=== PATIENT | female | born 1950 | race African-American/Black ===

== ENCOUNTER 2021-10-22 21:17 | Inpatient (IN) | payer MEDICARE, MEDICAID ==
[~2021-10-22] VITALS: Ht 175.3 cm; Wt 84.4 kg
[~2021-10-22 21:17] MED LIST: AMIO100T4 PO; CEPH250C2 PO; COR6 PO; DABI150C PO; FURO-152 PO; MIDO2.5T PO; PANT40TA51 PO; SERT20OR PO
[2021-10-22] MEDS ORDERED: NITROGLYCERIN 0.4MG TABLET SL SL PRN (22:45)
[2021-10-22] MEDS ORDERED: DILTIAZEM HCL 120MG CAPSULE CD 24HR PO ONE (22:45)
[2021-10-22] MEDS: ASPIRIN 81MG TABLET PO ONE ×2 (22:45→23:26)
[2021-10-22 23:14] LABS: BASOPHILS % 0.6 % (0.0-2.0); EOSINOPHILS % 0.7 % (0.0-5.0); HEMATOCRIT. 42.8 % (36.0-48.0); HEMOGLOBIN. 14.3 g/dL (12.0-16.0); LYMPHOCYTES % 16.6 % (20.0-50.0); MEAN CORPUSCULAR HEMOGLOBIN 29.2 pg (28.0-32.0); MEAN CORPUSCULAR VOLUME 87.6 fL (81.0-99.0); MEAN PLATELET VOLUME 8.2 fl (7.4-10.4); MONOCYTES % 8.8 % (2.0-8.0); NEUTROPHILS % 73.3 % (40.0-76.0); PLATELET 215 x1000/uL (130-400); RED BLOOD CELL COUNT 4.89 mill/uL (4.2-5.4); RED CELL DISTRIBUTION WIDTH 18.5 % (11.6-14.6)
[2021-10-22 23:15] LABS: CHLORIDE 110 mEq/L (98-107)
[2021-10-23] VITALS (9 sets, daily range): BP systolic 98–113; BP diastolic 56–82
[2021-10-23] MEDS ORDERED: ACETAMINOPHEN 325MG TABLET PO PRN (07:15)
[2021-10-23] MEDS: OMEPRAZOLE 20MG CAPSULE EXTENDED RELEASE PO SCH (08:29)
[2021-10-23] MEDS ORDERED: POTASSIUM CHLORIDE 20MEQ TABLET SR PO SCH (09:00)
[2021-10-23] MEDS ORDERED: AMIODARONE HCL 200 MG TABLET PO SCH ×2 (09:00→17:00)
[2021-10-23] MEDS: CARVEDILOL 6.25 MG TABLET PO SCH ×2 (10:10→21:00)
[2021-10-23] MEDS: MIDODRINE HCL 2.5MG TABLET PO SCH ×3 (10:10→16:51)
[2021-10-23] MEDS: AMIODARONE HCL 200 MG TABLET PO SCH (11:30)
[2021-10-23] MEDS: DILTIAZEM HCL 30MG TABLET PO SCH ×2 (12:00→18:00)
[2021-10-23 13:03] LABS: INR 1.4; PROTHROMBIN TIME 15.1 sec (9.6-11.0)
[2021-10-23] MEDS: ENOXAPARIN 80MG/0.8ML SYR SUBCUT SCH (16:51)
[2021-10-24] VITALS (12 sets, daily range): BP systolic 102–125; BP diastolic 57–82
[2021-10-24] MEDS: DILTIAZEM HCL 30MG TABLET PO SCH ×4 (06:00→17:52)
[2021-10-24 06:01] LABS: HEMATOCRIT. 42.1 % (36.0-48.0); HEMOGLOBIN. 13.8 g/dL (12.0-16.0); LYMPHOCYTES % 26.1 % (20.0-50.0); MEAN CORPUSCULAR HEMOGLOBIN 28.7 pg (28.0-32.0); MEAN CORPUSCULAR VOLUME 87.8 fL (81.0-99.0); MEAN PLATELET VOLUME 8.4 fl (7.4-10.4); MONOCYTES % 10.9 % (2.0-8.0); PLATELET 215 x1000/uL (130-400); RED BLOOD CELL COUNT 4.79 mill/uL (4.2-5.4); RED CELL DISTRIBUTION WIDTH 19.1 % (11.6-14.6)
[2021-10-24 06:03] LABS: CHLORIDE 111 mEq/L (98-107)
[2021-10-24] MEDS: ENOXAPARIN 80MG/0.8ML SYR SUBCUT SCH ×2 (06:10→17:53)
[2021-10-24] MEDS: OMEPRAZOLE 20MG CAPSULE EXTENDED RELEASE PO SCH (06:10)
[2021-10-24] MEDS: MIDODRINE HCL 2.5MG TABLET PO SCH ×3 (08:51→17:52)
[2021-10-24] MEDS: AMIODARONE HCL 200 MG TABLET PO SCH (08:52)
[2021-10-24] MEDS: CARVEDILOL 6.25 MG TABLET PO SCH ×2 (08:52→20:01)
[2021-10-24] MEDS ORDERED: POTASSIUM CHLORIDE 20MEQ TABLET SR PO NR (11:30)
[2021-10-24] MEDS: FUROSEMIDE 20MG TABLET PO SCH (13:48)
[2021-10-25] VITALS (7 sets, daily range): BP systolic 96–117; BP diastolic 44–75
[2021-10-25] MEDS: ENOXAPARIN 80MG/0.8ML SYR SUBCUT SCH ×2 (05:09→16:34)
[2021-10-25] MEDS: DILTIAZEM HCL 30MG TABLET PO SCH ×2 (05:09)
[2021-10-25] MEDS: OMEPRAZOLE 20MG CAPSULE EXTENDED RELEASE PO SCH (06:10)
[2021-10-25] MEDS: FUROSEMIDE 20MG TABLET PO SCH (09:22)
[2021-10-25] MEDS: CARVEDILOL 6.25 MG TABLET PO SCH (09:23)
[2021-10-25] MEDS: AMIODARONE HCL 200 MG TABLET PO SCH (09:23)
[2021-10-25] MEDS: MIDODRINE HCL 2.5MG TABLET PO SCH (09:23)
[2021-10-25] MEDS ORDERED: MIDODRINE HCL 2.5MG TABLET PO SCH (14:00)
[2021-10-25] MEDS ORDERED: MIDODRINE HCL 2.5MG TABLET PO NR (20:03)
[2021-10-25] MEDS: CARVEDILOL 12.5MG TABLET PO SCH (20:56)
[2021-10-25] MEDS ORDERED: FAMOTIDINE 20MG TABLET PO SCH (21:00)
[2021-10-25] MEDS: MIDODRINE HCL 5MG TABLET PO SCH (22:26)
[2021-10-26] VITALS: BP_SYST 104; BP_SYST 97; BP_DIAS 64; BP_DIAS 68
[2021-10-26 05:00] VITALS: BP_SYST 105; BP_SYST 86; BP_DIAS 56; BP_DIAS 74
[2021-10-26] MEDS: ENOXAPARIN 80MG/0.8ML SYR SUBCUT SCH (05:44)
[2021-10-26] MEDS: MIDODRINE HCL 5MG TABLET PO SCH (05:45)
[2021-10-26] MEDS ORDERED: FAMOTIDINE 20MG TABLET PO SCH (07:10)
[2021-10-26 07:55] VITALS: BP 110/78
[2021-10-26] MEDS: FUROSEMIDE 20MG TABLET PO SCH (08:35)
[2021-10-26] MEDS: CARVEDILOL 12.5MG TABLET PO SCH (08:36)
[2021-10-26] MEDS ORDERED: AMIODARONE HCL 200 MG TABLET PO SCH (09:00)
[2021-10-26 12:00] VITALS: BP 95/67
[2021-10-26 13:56] VITALS: BP 95/67
== END 2021-10-26 15:45 | disposition home health service (06) | DRG 291 ==
LOC: ER 21:17 → EDBEDREQTM 10-23 03:24 → ENRESERV 10-23 04:33 → 3WST 10-23 05:16 → 8WST 10-25 00:11
PROVIDERS: ADMIT Internal Medicine; ATTEND Internal Medicine
PROC: 4B02XTZ Measurement of Cardiac Defibrillator, External Approach (ICD-10-PCS; principal; 2021-10-25)
DX: I11.0 Hypertensive heart disease with heart failure (principal); I50.23 Acute on chronic systolic (congestive) heart failure; I48.20 Chronic atrial fibrillation, unspecified; I48.92 Unspecified atrial flutter; I31.3 Pericardial effusion (noninflammatory); I47.1 Supraventricular tachycardia; I34.0 Nonrheumatic mitral (valve) insufficiency; I42.9 Cardiomyopathy, unspecified; Z20.822 Contact with and (suspected) exposure to COVID-19; K21.9 Gastro-esophageal reflux disease without esophagitis; Z95.810 Presence of automatic (implantable) cardiac defibrillator; Z88.2 Allergy status to sulfonamides; Z79.899 Other long term (current) drug therapy; Z79.2 Long term (current) use of antibiotics; Z79.84 Long term (current) use of oral hypoglycemic drugs; Z79.01 Long term (current) use of anticoagulants
CPT/HCPCS: 36415; 71045; 80048; 80053; 83735; 83880; 84484; 85025; 87426; 93005; 93308; 99291; J1650

== ENCOUNTER 2022-09-17 14:00 | Inpatient (IN) | payer MEDICARE, MEDICAID ==
[~2022-09-17] VITALS: Ht 175.3 cm; Wt 85.8 kg
[~2022-09-17 14:00] MED LIST changes: -FURO-152 PO
[2022-09-17 15:22] LABS: BASOPHILS % 0.4 % (0.0-2.0); MEAN PLATELET VOLUME 8.2 fl (7.4-10.4)
[2022-09-17 15:24] LABS: EOSINOPHILS % 0.3 % (0.0-5.0); HEMATOCRIT. 45.5 % (36.0-48.0); HEMOGLOBIN. 15.1 g/dL (12.0-16.0); LYMPHOCYTES % 25.7 % (20.0-50.0); MEAN CORPUSCULAR VOLUME 87.6 fL (81.0-99.0); MONOCYTES % 8.7 % (2.0-8.0); NEUTROPHILS % 64.9 % (40.0-76.0); PLATELET 190 x1000/uL (130-400); RED CELL DISTRIBUTION WIDTH 13.8 % (11.6-14.6)
[2022-09-17] MEDS ORDERED: MORPHINE SULFATE 4 MG/ML CPJ (NOT FOR IM USE) IV ONE (15:30)
[2022-09-17] MEDS ORDERED: ASPIRIN 81MG TABLET PO ONE (15:30)
[2022-09-17] MEDS ORDERED: NITROGLYCERIN 0.4MG TABLET SL SL PRN (15:30)
[2022-09-17 18:05] LABS: CHLORIDE 110 mEq/L (98-107)
[2022-09-17] MEDS ORDERED: IPRATROPIUM/ALBUTEROL 0.5-3(2.5)MG/3ML NEB HHN PRN (20:45)
[2022-09-17] MEDS ORDERED: ONDANSETRON HCL 4MG/2ML INJ IV PRN (20:45)
[2022-09-17] MEDS ORDERED: ENOXAPARIN 40MG/0.4ML SYR SUBCUT SCH (21:00)
[2022-09-17] MEDS: METOPROLOL TARTRATE 25MG TABLET PO SCH (21:00)
[2022-09-17] MEDS ORDERED: ASPIRIN 81MG TABLET PO NR (22:30)
[2022-09-17 23:45] VITALS: BP 116/69
[2022-09-18] VITALS: BP 118/80
[2022-09-18] MEDS ORDERED: SACU1TAB PO (01:24)
[2022-09-18] MEDS ORDERED: VITA1TAB20 PO (01:55)
[2022-09-18] MEDS ORDERED: UBID200C17 PO (01:55)
[2022-09-18] MEDS ORDERED: CHOL400D7 PO (01:55)
[2022-09-18] MEDS ORDERED: ASCO500C15 PO (01:55)
[2022-09-18] MEDS ORDERED: METO-396 PO (01:55)
[2022-09-18] MEDS ORDERED: POTA-205 PO (01:55)
[2022-09-18] MEDS ORDERED: MULT-1146 PO (01:55)
[2022-09-18 04:00] VITALS: BP 108/58
[2022-09-18 06:39] LABS: BASOPHILS % 0.4 % (0.0-2.0); CHLORIDE 109 mEq/L (98-107); EOSINOPHILS % 1.4 % (0.0-5.0); HEMATOCRIT. 43.1 % (36.0-48.0); HEMOGLOBIN. 14.5 g/dL (12.0-16.0); LYMPHOCYTES % 24.5 % (20.0-50.0); MEAN CORPUSCULAR HEMOGLOBIN 29.5 pg (28.0-32.0); MEAN CORPUSCULAR VOLUME 87.5 fL (81.0-99.0); MEAN PLATELET VOLUME 8.3 fl (7.4-10.4); MONOCYTES % 10.5 % (2.0-8.0); NEUTROPHILS % 63.2 % (40.0-76.0); PLATELET 183 x1000/uL (130-400); RED BLOOD CELL COUNT 4.93 mill/uL (4.2-5.4); RED CELL DISTRIBUTION WIDTH 13.7 % (11.6-14.6)
[2022-09-18 06:55] LABS: T4 FREE 2.27 ng/dL (0.76-1.46)
[2022-09-18 08:00] VITALS: BP 115/58
[2022-09-18] MEDS ORDERED: LEVOTHYROXINE SODIUM 50MCG TABLET PO SCH (08:15)
[2022-09-18] MEDS: SERTRALINE HCL 50MG TABLET PO SCH (08:58)
[2022-09-18] MEDS: METOPROLOL TARTRATE 25MG TABLET PO SCH (08:58)
[2022-09-18] MEDS: ENTRESTO PO SCH ×2 (08:59→17:27)
[2022-09-18] MEDS: DABIGATRAN 150 MG PO SCH ×2 (08:59→20:14)
[2022-09-18] MEDS ORDERED: SACUBITRIL/VALSARTAN 24MG/26MG TABLET PO SCH (09:00)
[2022-09-18] MEDS ORDERED: AMIODARONE HCL 200 MG TABLET PO SCH (09:00)
[2022-09-18 12:00] VITALS: BP 105/59
[2022-09-18] MEDS ORDERED: POTASSIUM CHLORIDE 10MEQ TABLET SR PO NR (12:00)
[2022-09-18] MEDS ORDERED: FURO-152 PO (15:26)
[2022-09-18 16:00] VITALS: BP 100/57
[2022-09-18] MEDS: CARVEDILOL 3.125 MG TABLET PO SCH (17:23)
[2022-09-18 18:01] LABS: CLARITY URINE CLOUDY (CLEAR); COLOR URINE YELLOW (YELLOW); KETONES URINE NEGATIVE (NEGATIVE); LEUKOCYTE ESTERASE URINE 1+ (NEGATIVE); NITRITE URINE NEGATIVE (NEGATIVE); OCCULT BLOOD URINE NEGATIVE (NEGATIVE); PH URINE 7.5 (4.5-8.0); PROTEIN URINE NEGATIVE (NEGATIVE); SPECIFIC GRAVITY URINE 1.008 (1.005-1.030); UROBILINOGEN URINE 0.2 E.U./dL (0.2-1.0)
[2022-09-18 18:12] LABS: *AMPHETAMINES SCREEN URINE NEGATIVE (NEGATIVE); *BARBITURATES SCREEN URINE NEGATIVE (NEGATIVE); *BENZODIAZEPINES SCREEN URINE NEGATIVE (NEGATIVE); *COCAINE SCREEN URINE NEGATIVE (NEGATIVE); CANNABINOID URINE SCREEN NEGATIVE (NEGATIVE); METHADONE URINE SCREEN NEGATIVE (NEGATIVE); OPIATES URINE SCREEN NEGATIVE (NEGATIVE); PHENCYCLIDINE URINE SCREEN NEGATIVE (NEGATIVE)
[2022-09-18 18:26] LABS: D-DIMER 0.42 mg/L FEU (<0.50); INR 1.3; PROTHROMBIN TIME 13.9 sec (9.6-11.0)
[2022-09-18 20:00] VITALS: BP 109/67
[2022-09-18] MEDS: FAMOTIDINE 20MG TABLET PO SCH (20:14)
[2022-09-18] MEDS: ATORVASTATIN CALCIUM 40MG TABLET PO SCH (20:14)
[2022-09-19] VITALS: BP 111/61
[2022-09-19 04:00] VITALS: BP 120/56
[2022-09-19] MEDS: CARVEDILOL 3.125 MG TABLET PO SCH ×3 (06:30→20:29)
[2022-09-19 07:24] LABS: BASOPHILS % 0.6 % (0.0-2.0); EOSINOPHILS % 4.1 % (0.0-5.0); HEMATOCRIT. 45.7 % (36.0-48.0); HEMOGLOBIN. 14.9 g/dL (12.0-16.0); MEAN CORPUSCULAR HEMOGLOBIN 28.9 pg (28.0-32.0); MEAN CORPUSCULAR VOLUME 88.2 fL (81.0-99.0); MEAN PLATELET VOLUME 8.3 fl (7.4-10.4); MONOCYTES % 10.9 % (2.0-8.0); NEUTROPHILS % 52.4 % (40.0-76.0); PLATELET 182 x1000/uL (130-400); RED BLOOD CELL COUNT 5.18 mill/uL (4.2-5.4); RED CELL DISTRIBUTION WIDTH 13.9 % (11.6-14.6)
[2022-09-19 07:40] LABS: CHLORIDE 109 mEq/L (98-107)
[2022-09-19 07:57] LABS: PHOSPHORUS 4.2 mg/dL (2.5-4.9)
[2022-09-19 07:58] VITALS: BP 109/58
[2022-09-19] MEDS: ASPIRIN 81MG EC TABLET PO SCH (08:27)
[2022-09-19] MEDS: AMIODARONE HCL 200 MG TABLET PO SCH (08:28)
[2022-09-19] MEDS: ENTRESTO PO SCH ×2 (08:28→19:48)
[2022-09-19] MEDS: SERTRALINE HCL 50MG TABLET PO SCH (08:28)
[2022-09-19] MEDS: DABIGATRAN 150 MG PO SCH ×2 (08:28→20:30)
[2022-09-19] MEDS ORDERED: IOHEXOL-350 100 ML BOTTLE ONE (09:25)
[2022-09-19] MEDS ORDERED: NITROGLYCERIN SPRAY/4.9GM CAN TL NR (10:00)
[2022-09-19] MEDS ORDERED: METOPROLOL TARTRATE 5MG/5ML VIAL IV SCH (10:45)
[2022-09-19] MEDS ORDERED: LORAZEPAM 0.5MG TABLET PO PRN (11:30)
[2022-09-19] MEDS ORDERED: LORAZEPAM 0.5MG TABLET PO SCH (11:30)
[2022-09-19 12:00] VITALS: BP 105/59
[2022-09-19 16:00] VITALS: BP 135/68
[2022-09-19 20:00] VITALS: BP 99/57
[2022-09-19] MEDS: FAMOTIDINE 20MG TABLET PO SCH (20:29)
[2022-09-19] MEDS: ATORVASTATIN CALCIUM 40MG TABLET PO SCH (20:29)
[2022-09-20] VITALS: BP 107/63
[2022-09-20 04:00] VITALS: BP 101/59
[2022-09-20 07:10] LABS: BASOPHILS % 0.7 % (0.0-2.0); EOSINOPHILS % 4.6 % (0.0-5.0); HEMATOCRIT. 45.5 % (36.0-48.0); HEMOGLOBIN. 14.8 g/dL (12.0-16.0); LYMPHOCYTES % 28.1 % (20.0-50.0); MEAN CORPUSCULAR HEMOGLOBIN 29.4 pg (28.0-32.0); MEAN CORPUSCULAR VOLUME 90.4 fL (81.0-99.0); MEAN PLATELET VOLUME 7.9 fl (7.4-10.4); MONOCYTES % 9.4 % (2.0-8.0); NEUTROPHILS % 57.2 % (40.0-76.0); PLATELET 152 x1000/uL (130-400); RED BLOOD CELL COUNT 5.03 mill/uL (4.2-5.4); RED CELL DISTRIBUTION WIDTH 14.4 % (11.6-14.6)
[2022-09-20 07:49] LABS: CHLORIDE 109 mEq/L (98-107)
[2022-09-20 08:00] VITALS: BP 105/52
[2022-09-20] MEDS: CARVEDILOL 3.125 MG TABLET PO SCH (09:00)
[2022-09-20] MEDS: DABIGATRAN 150 MG PO SCH (09:57)
[2022-09-20] MEDS: ENTRESTO PO SCH (09:58)
[2022-09-20] MEDS: AMIODARONE HCL 200 MG TABLET PO SCH (10:00)
[2022-09-20] MEDS: ASPIRIN 81MG EC TABLET PO SCH (10:00)
[2022-09-20] MEDS: SERTRALINE HCL 50MG TABLET PO SCH (10:00)
[2022-09-20 12:00] VITALS: BP 110/70
[2022-09-20] MEDS ORDERED: ALBUTEROL (0.083%) 2.5MG/3ML NEB HHN PRN (12:45)
[2022-09-20] MEDS ORDERED: IPRATROPIUM BROMIDE (0.02%) 0.5MG/2.5ML NEB HHN PRN (12:45)
[2022-09-20 15:58] VITALS: BP 110/70
== END 2022-09-20 16:50 | disposition home or self-care (01) | DRG 291 ==
LOC: ER 14:25 → 8WST 18:33 → EDBEDREQTM 18:35 → EDBEDREQ 18:35 → ENRESERV 20:34
PROVIDERS: ADMIT Internal Medicine; ATTEND Internal Medicine
DX: I11.0 Hypertensive heart disease with heart failure (principal); I50.23 Acute on chronic systolic (congestive) heart failure; I48.21 Permanent atrial fibrillation; I48.92 Unspecified atrial flutter; I42.9 Cardiomyopathy, unspecified; E78.5 Hyperlipidemia, unspecified; Z20.822 Contact with and (suspected) exposure to COVID-19; E87.8 Other disorders of electrolyte and fluid balance, not elsewhere classified; E05.90 Thyrotoxicosis, unspecified without thyrotoxic crisis or storm; F41.9 Anxiety disorder, unspecified; F32.9 Major depressive disorder, single episode, unspecified; Z88.2 Allergy status to sulfonamides; Z79.899 Other long term (current) drug therapy; Z95.810 Presence of automatic (implantable) cardiac defibrillator
CPT/HCPCS: 36415; 71045; 75571; 76536; 80048; 80053; 80061; 80305; 81003; 83036; 83520; 83735; 83880; 84100; 84439; 84443; 84484; 85025; 85379; 87426; 93005; 93306; 93880; 93970; 97162; 97165; 99285; J1650; J2270; J3490; Q9967

== ENCOUNTER 2022-09-24 16:21 | Inpatient (IN) | payer MEDICARE, MEDICAID ==
[~2022-09-24] VITALS: Ht 177.8 cm; Wt 79.1 kg
[~2022-09-24 16:21] MED LIST changes: +ASCO500C15 PO; -CEPH250C2 PO; +CHOL400D7 PO; +FURO-152 PO; +MULT-1146 PO; -PANT40TA51 PO; +POTA-205 PO; +SACU1TAB PO; +UBID200C17 PO; +VITA1TAB20 PO
[2022-09-24 17:23] LABS: BASOPHILS % 0.4 % (0.0-2.0); EOSINOPHILS % 2.1 % (0.0-5.0); HEMATOCRIT. 44.6 % (36.0-48.0); HEMOGLOBIN. 14.6 g/dL (12.0-16.0); LYMPHOCYTES % 29.8 % (20.0-50.0); MEAN CORPUSCULAR HEMOGLOBIN 28.8 pg (28.0-32.0); MEAN PLATELET VOLUME 8.3 fl (7.4-10.4); MONOCYTES % 12.5 % (2.0-8.0); NEUTROPHILS % 55.2 % (40.0-76.0); PLATELET 184 x1000/uL (130-400); RED BLOOD CELL COUNT 5.07 mill/uL (4.2-5.4); RED CELL DISTRIBUTION WIDTH 13.7 % (11.6-14.6)
[2022-09-24 17:35] LABS: CHLORIDE 108 mEq/L (98-107)
[2022-09-24] MEDS ORDERED: ASPIRIN 325MG TABLET PO ONE (19:30)
[2022-09-24] MEDS ORDERED: ACETAMINOPHEN 325MG TABLET PO PRN (23:15)
[2022-09-24] MEDS ORDERED: CLONIDINE 0.1MG TABLET PO PRN ×2 (23:15→23:45)
[2022-09-24] MEDS ORDERED: ONDANSETRON HCL 4MG/2ML INJ IV PRN ×2 (23:15→23:45)
[2022-09-24] MEDS ORDERED: DOCUSATE SODIUM 100MG CAPSULE PO PRN (23:15)
[2022-09-24] MEDS: IPRATROPIUM/ALBUTEROL 0.5-3(2.5)MG/3ML NEB HHN SCH (23:15)
[2022-09-24] MEDS ORDERED: ZOLPIDEM TARTRATE 5MG TABLET PO PRN (23:15)
[2022-09-24] MEDS ORDERED: ENOXAPARIN 40MG/0.4ML SYR SUBCUT SCH ×2 (23:15→23:45)
[2022-09-24] MEDS ORDERED: HYDROCODONE/ACETAMINOPHEN 5/325MG TABLET PO PRN (23:45)
[2022-09-24] MEDS ORDERED: MORPHINE SULFATE 2 MG/ML CPJ (NOT FOR IM USE) IV PRN (23:45)
[2022-09-24] MEDS ORDERED: LORAZEPAM 2MG/ML CPJ IV PRN (23:45)
[2022-09-24] MEDS ORDERED: NALOXONE HCL 0.4MG/ML VIAL IV PRN (23:45)
[2022-09-25] MEDS: IPRATROPIUM/ALBUTEROL 0.5-3(2.5)MG/3ML NEB HHN SCH ×7 (03:15→23:15)
[2022-09-25 07:06] LABS: CREATINE KINASE MB FRACTION 4.5 ng/mL (0.5-3.6)
[2022-09-25] MEDS: MAGNESIUM/ALUMINUM HYDROXIDE/SIMETHICONE 30ML UDC PO PRN (09:38)
[2022-09-25] MEDS: MULTIVITAMINS,THER W-MINERALS TABLET PO SCH (09:38)
[2022-09-25 10:01] LABS: CHLORIDE 107 mEq/L (98-107)
[2022-09-25 10:08] LABS: AMYLASE 53 IU/L (25-115)
[2022-09-25] MEDS ORDERED: AMIODARONE HCL 50MG/ML 3ML VIAL IV ONE (14:15)
[2022-09-25] MEDS ORDERED: AMIODARONE HCL 150 MG in DEXT 5% WATER 97 ML IV ONE (14:15)
[2022-09-25] MEDS ORDERED: MAGNESIUM 2 G PREMIX 50 ML IV ONE (14:30)
[2022-09-25] MEDS ORDERED: MIDAZOLAM HCL 2 MG/2 ML VIAL IV ONE (14:30)
[2022-09-25] MEDS: AMIODARONE HCL 200 MG TABLET PO SCH (14:42)
[2022-09-25] MEDS ORDERED: AMIODARONE HCL 900 MG in DEXT 5% WATER 482 ML IV PRN ×4 (15:45)
[2022-09-25 17:07] LABS: INR 1.2
[2022-09-25 17:22] LABS: CREATINE KINASE MB FRACTION 4.4 ng/mL (0.5-3.6)
[2022-09-25] MEDS ORDERED: DILTIAZEM HCL 5MG/ML 5ML VIAL IV NR (17:30)
[2022-09-25] MEDS: ENOXAPARIN 80MG/0.8ML SYR SUBCUT SCH (18:00)
[2022-09-25] MEDS: DILTIAZEM HCL 60MG TABLET PO SCH (18:00)
[2022-09-25] MEDS: DILTIAZEM HCL 30MG TABLET PO SCH (18:00)
[2022-09-25 20:00] LABS: BASOPHILS % 0.3 % (0.0-2.0); EOSINOPHILS % 0.1 % (0.0-5.0); HEMOGLOBIN. 15.9 g/dL (12.0-16.0); LYMPHOCYTES % 12.7 % (20.0-50.0); MEAN CORPUSCULAR HEMOGLOBIN 29.1 pg (28.0-32.0); MEAN CORPUSCULAR VOLUME 87.9 fL (81.0-99.0); MEAN PLATELET VOLUME 7.9 fl (7.4-10.4); MONOCYTES % 7.4 % (2.0-8.0); NEUTROPHILS % 79.5 % (40.0-76.0); PLATELET 188 x1000/uL (130-400); RED BLOOD CELL COUNT 5.47 mill/uL (4.2-5.4); RED CELL DISTRIBUTION WIDTH 14.1 % (11.6-14.6)
[2022-09-25] MEDS: CARVEDILOL 3.125 MG TABLET PO SCH (21:00)
[2022-09-26] MEDS: DILTIAZEM HCL 60MG TABLET PO SCH
[2022-09-26 05:21] LABS: BASOPHILS % 0.4 % (0.0-2.0); EOSINOPHILS % 0.5 % (0.0-5.0); HEMATOCRIT. 48.4 % (36.0-48.0); HEMOGLOBIN. 16.1 g/dL (12.0-16.0); LYMPHOCYTES % 22.9 % (20.0-50.0); MEAN CORPUSCULAR HEMOGLOBIN 29.5 pg (28.0-32.0); MEAN CORPUSCULAR VOLUME 88.6 fL (81.0-99.0); MEAN PLATELET VOLUME 8.3 fl (7.4-10.4); NEUTROPHILS % 65.2 % (40.0-76.0); PLATELET 183 x1000/uL (130-400); RED BLOOD CELL COUNT 5.46 mill/uL (4.2-5.4); RED CELL DISTRIBUTION WIDTH 13.4 % (11.6-14.6)
[2022-09-26 05:58] LABS: CHLORIDE 106 mEq/L (98-107)
[2022-09-26] MEDS: DILTIAZEM HCL 30MG TABLET PO SCH ×3 (06:00→17:29)
[2022-09-26 06:06] LABS: PHOSPHORUS 3.9 mg/dL (2.5-4.9)
[2022-09-26] MEDS: IPRATROPIUM/ALBUTEROL 0.5-3(2.5)MG/3ML NEB HHN SCH ×2 (07:15→11:15)
[2022-09-26] MEDS: CARVEDILOL 3.125 MG TABLET PO SCH ×2 (09:00→21:00)
[2022-09-26] MEDS: MULTIVITAMINS,THER W-MINERALS TABLET PO SCH (09:00)
[2022-09-26] MEDS: AMIODARONE HCL 200 MG TABLET PO SCH (09:00)
[2022-09-26] MEDS: ENOXAPARIN 80MG/0.8ML SYR SUBCUT SCH ×2 (10:34→17:29)
[2022-09-26] MEDS: LORAZEPAM 2MG/ML CPJ IV PRN (11:45)
[2022-09-26 12:59] LABS: T4 FREE 2.61 ng/dL (0.76-1.46)
[2022-09-26 13:42] VITALS: BP 102/56
[2022-09-26 16:00] VITALS: BP 98/61
[2022-09-26 20:00] VITALS: BP 89/59
[2022-09-26] MEDS: IPRATROPIUM BROMIDE (0.02%) 0.5MG/2.5ML NEB HHN SCH (20:00)
[2022-09-26] MEDS: ALBUTEROL (0.083%) 2.5MG/3ML NEB HHN SCH (20:00)
[2022-09-26 20:54] VITALS: BP_SYST 100; BP_SYST 111; BP_DIAS 55
[2022-09-27] VITALS: BP 98/75
[2022-09-27 04:00] VITALS: BP 97/58
[2022-09-27] MEDS: ALBUTEROL (0.083%) 2.5MG/3ML NEB HHN SCH ×4 (04:00→22:10)
[2022-09-27] MEDS: IPRATROPIUM BROMIDE (0.02%) 0.5MG/2.5ML NEB HHN SCH ×3 (04:00→22:10)
[2022-09-27 06:34] LABS: BASOPHILS % 0.3 % (0.0-2.0); EOSINOPHILS % 2.8 % (0.0-5.0); HEMOGLOBIN. 15.2 g/dL (12.0-16.0); LYMPHOCYTES % 20.2 % (20.0-50.0); MEAN CORPUSCULAR HEMOGLOBIN 29.6 pg (28.0-32.0); MEAN CORPUSCULAR VOLUME 87.3 fL (81.0-99.0); MEAN PLATELET VOLUME 8.3 fl (7.4-10.4); MONOCYTES % 11.4 % (2.0-8.0); NEUTROPHILS % 65.3 % (40.0-76.0); PLATELET 179 x1000/uL (130-400); RED BLOOD CELL COUNT 5.15 mill/uL (4.2-5.4); RED CELL DISTRIBUTION WIDTH 13.4 % (11.6-14.6)
[2022-09-27] MEDS: DILTIAZEM HCL 30MG TABLET PO SCH ×2 (06:39)
[2022-09-27] MEDS: ENOXAPARIN 80MG/0.8ML SYR SUBCUT SCH ×2 (06:39→18:22)
[2022-09-27 07:07] LABS: CHLORIDE 107 mEq/L (98-107)
[2022-09-27 08:00] VITALS: BP 98/54
[2022-09-27] MEDS: CARVEDILOL 3.125 MG TABLET PO SCH ×2 (09:00→21:00)
[2022-09-27] MEDS: AMIODARONE HCL 200 MG TABLET PO SCH ×3 (09:03→18:21)
[2022-09-27] MEDS ORDERED: METHIMAZOLE 5MG TABLET PO SCH (09:15)
[2022-09-27] MEDS: MULTIVITAMINS,THER W-MINERALS TABLET PO SCH (11:28)
[2022-09-27] MEDS: MIDODRINE HCL 5MG TABLET PO SCH ×3 (11:28→18:21)
[2022-09-27] MEDS: LORAZEPAM 2MG/ML CPJ IV PRN (11:29)
[2022-09-27] MEDS ORDERED: LORAZEPAM 2MG/ML CPJ IV PRN (11:30)
[2022-09-27] MEDS: DILTIAZEM HCL 90MG TABLET PO SCH ×2 (11:36→18:20)
[2022-09-27 12:10] VITALS: BP 106/64
[2022-09-27 16:00] VITALS: BP 84/44
[2022-09-27] MEDS: DIGOXIN 500MCG/2ML AMP IV SCH (18:21)
[2022-09-27 20:00] VITALS: BP 108/54
[2022-09-28] VITALS: BP 107/56
[2022-09-28] MEDS: IPRATROPIUM BROMIDE (0.02%) 0.5MG/2.5ML NEB HHN SCH ×7 (00:40→20:40)
[2022-09-28 04:00] VITALS: BP 108/54
[2022-09-28] MEDS: ALBUTEROL (0.083%) 2.5MG/3ML NEB HHN SCH ×6 (04:00→20:40)
[2022-09-28] MEDS: DILTIAZEM HCL 90MG TABLET PO SCH ×4 (05:10→18:20)
[2022-09-28] MEDS: ENOXAPARIN 80MG/0.8ML SYR SUBCUT SCH ×2 (05:52→18:21)
[2022-09-28 07:27] LABS: BASOPHILS % 0.5 % (0.0-2.0); EOSINOPHILS % 3.7 % (0.0-5.0); HEMATOCRIT. 41.2 % (36.0-48.0); HEMOGLOBIN. 14.1 g/dL (12.0-16.0); MEAN CORPUSCULAR VOLUME 87.8 fL (81.0-99.0); MEAN PLATELET VOLUME 8.7 fl (7.4-10.4); MONOCYTES % 9.5 % (2.0-8.0); NEUTROPHILS % 68.3 % (40.0-76.0); PLATELET 167 x1000/uL (130-400); RED BLOOD CELL COUNT 4.69 mill/uL (4.2-5.4); RED CELL DISTRIBUTION WIDTH 13.7 % (11.6-14.6)
[2022-09-28 08:00] VITALS: BP 104/54
[2022-09-28 08:18] LABS: CHLORIDE 107 mEq/L (98-107)
[2022-09-28] MEDS: AMIODARONE HCL 200 MG TABLET PO SCH (08:45)
[2022-09-28] MEDS: MULTIVITAMINS,THER W-MINERALS TABLET PO SCH (08:46)
[2022-09-28] MEDS: METHIMAZOLE 5MG TABLET PO SCH (08:46)
[2022-09-28] MEDS: MIDODRINE HCL 5MG TABLET PO SCH ×3 (08:46→18:22)
[2022-09-28] MEDS: CARVEDILOL 3.125 MG TABLET PO SCH ×2 (08:47→22:13)
[2022-09-28 11:45] VITALS: BP 129/69
[2022-09-28 16:00] VITALS: BP 121/57
[2022-09-28] MEDS: DIGOXIN 500MCG/2ML AMP IV SCH (18:00)
[2022-09-28 20:00] VITALS: BP 126/58
[2022-09-29] VITALS: BP 97/44
[2022-09-29] MEDS: MAGNESIUM/ALUMINUM HYDROXIDE/SIMETHICONE 30ML UDC PO PRN (02:06)
[2022-09-29 04:00] VITALS: BP 111/55
[2022-09-29] MEDS: IPRATROPIUM BROMIDE (0.02%) 0.5MG/2.5ML NEB HHN SCH ×5 (04:00→15:22)
[2022-09-29] MEDS: ALBUTEROL (0.083%) 2.5MG/3ML NEB HHN SCH ×5 (04:00→15:22)
[2022-09-29] MEDS: DILTIAZEM HCL 90MG TABLET PO SCH ×3 (05:53→11:47)
[2022-09-29] MEDS: ENOXAPARIN 80MG/0.8ML SYR SUBCUT SCH (05:54)
[2022-09-29 08:00] VITALS: BP 115/52
[2022-09-29] MEDS: CARVEDILOL 3.125 MG TABLET PO SCH (08:56)
[2022-09-29] MEDS: MIDODRINE HCL 5MG TABLET PO SCH ×3 (08:56→16:49)
[2022-09-29] MEDS: MULTIVITAMINS,THER W-MINERALS TABLET PO SCH (08:57)
[2022-09-29] MEDS: METHIMAZOLE 5MG TABLET PO SCH (08:57)
[2022-09-29] MEDS ORDERED: MIDO5TAB4 PO (10:29)
[2022-09-29] MEDS ORDERED: COR3 PO (10:29)
[2022-09-29] MEDS ORDERED: DILT90TA2 PO (10:29)
[2022-09-29] MEDS ORDERED: APIX5TAB4 PO (10:29)
[2022-09-29] MEDS ORDERED: METH-371 PO (10:29)
[2022-09-29] MEDS ORDERED: DIGO250A8 IV ×2 (10:29)
[2022-09-29 12:00] VITALS: BP 116/53
[2022-09-29 16:00] VITALS: BP 108/55
[2022-09-29 16:15] VITALS: BP 108/55
== END 2022-09-29 17:15 | disposition home or self-care (01) | DRG 314 ==
LOC: ER 16:21 → MICUSO 09-25 14:24 → EDBEDREQSVC 09-25 14:25 → EDBEDREQTM 09-25 14:25 → 7EST 09-26 13:17
PROVIDERS: ADMIT Internal Medicine Nephrology; ATTEND Internal Medicine Nephrology
PROC: 4B02XTZ Measurement of Cardiac Defibrillator, External Approach (ICD-10-PCS; principal; 2022-09-25)
DX: T82.897A Other specified complication of cardiac prosthetic devices, implants and grafts, initial encounter (principal); I49.01 Ventricular fibrillation; I47.1 Supraventricular tachycardia; F33.1 Major depressive disorder, recurrent, moderate; I50.22 Chronic systolic (congestive) heart failure; I42.8 Other cardiomyopathies; I48.92 Unspecified atrial flutter; I48.0 Paroxysmal atrial fibrillation; F41.9 Anxiety disorder, unspecified; E78.5 Hyperlipidemia, unspecified; E03.9 Hypothyroidism, unspecified; E05.90 Thyrotoxicosis, unspecified without thyrotoxic crisis or storm; I11.0 Hypertensive heart disease with heart failure; F22 Delusional disorders; Z86.73 Personal history of transient ischemic attack (TIA), and cerebral infarction without residual deficits; Z88.2 Allergy status to sulfonamides; Z95.810 Presence of automatic (implantable) cardiac defibrillator; Y92.89 Other specified places as the place of occurrence of the external cause; Y71.2 Prosthetic and other implants, materials and accessory cardiovascular devices associated with adverse incidents
CPT/HCPCS: 36415; 71045; 76700; 80048; 80053; 82150; 82550; 82553; 83735; 83880; 84100; 84439; 84443; 84480; 84484; 85025; 87426; 93005; 94640; 99285; J1160; J1650; J2060